=== PATIENT | male | born 1960 | race African-American/Black ===

== ENCOUNTER 2019-09-21 21:04 | Emergency (ER) | payer BC, MEDICAID ==
[~2019-09-21] VITALS: Ht 195.6 cm; Wt 90.7 kg
[2019-09-21 21:05] VITALS: BP 133/71
--- NOTE | 2019-09-21 21:05 | NUR ---
ED Nurse Note: Pt ambulated to ED from home c/o 07/23 bladder pain and urinary retention since 11am when he had his staton removed in another urgent care. Pt experienced retention 10 days ago and had a staton placed. Pt was also on keflex for 10days, c/o white discharge as well. VSS, Pt is A&Ox4
[2019-09-21] MEDS ORDERED: CEPHALEXIN500 MG ORAL (21:13)
[2019-09-21] MEDS ORDERED: Lidocaine HCl 2% Jelly 6ml Tube TOPIC ONE (21:30)
--- NOTE | 2019-09-21 21:50 | NUR ---
ED Nurse Note: Lidocaine jelly inserted per order, 14F coude cath inserted with leg bag, pt tolerated well, urine sent to lab
[2019-09-21 22:01] LABS: APPEARANCE,URINE SLIGHTLY CLOUDY; BILIRUBIN, URINE NEGATIVE (NEGATIVE); COLOR,URINE PALE YELLOW; GLUCOSE, URINE (UA) NEGATIVE (NEGATIVE); KETONES,URINE NEGATIVE (NEGATIVE); LEUKOCYTE ESTERASE ,URINE 3+ (NEGATIVE); NITRITE,URINE POSITIVE (NEGATIVE); PH,URINE 6 (4.5-8.0); PROTEIN,URINE 2+ (NEGATIVE); UROBILINOGEN,URINE NORMAL MG/DL (0.0-1.0)
[2019-09-21 22:30] VITALS: BP 133/71
--- NOTE | 2019-09-21 22:30 | NUR ---
ER DISCHARGE NOTE: Patient is cleared to be discharged per ERMD, pt is aox4, on room air, with stable vital signs. pt was given dc instructions, pt was able to verbalize understanding, pt id band removed without complications. pt is able to ambulate with steady gait. pt took all belongings. Leg bag in place
--- NOTE | 2019-09-22 00:19 | Emergency Room Report ---
History of Present Illness General Chief Complaint: Male Urogenital Problems Source: Patient Present Illness HPI 58-year-old male presents ED for evaluation. Complaining of urinary retention x1 day. States that over Thanksgi he developed urinary retention and had a Staton catheter placed at another emergency room. Was scheduled to see urologist tomorrow however patient thought he was feeling better so he went to an urgent care today and asked them to remove the catheter. Patient states he has been unable to urinate since. Denies pain. Denies fevers or chills. Denies flank pain. Was also prescribed antibiotics for presumed UTI. States he is taken nearly 10 days of antibiotics now. No other aggravating relieving factors. Denies any other associated symptoms Allergies: Coded Allergies: No Known Allergies (Verified Allergy, Unknown, 03/06/10) Patient History Past Medical History: none Past Surgical History: none Pertinent Family History: none Social History: Denies: smoking, alcohol use, drug use Immunizations: UTD Reviewed Nursing Documentation: PMH: Agreed; PSxH: Agreed Nursing Documentation-PMH Past Medical History: No History, Except For Review of Systems All Other Systems: negative except mentioned in HPI Physical Exam Vital Signs Date Time Temp Pulse Resp B/P (MAP) Pulse Ox O2 Delivery O2 Flow Rate FiO2 09/21/19 21:05 98.1 67 14 133/71 96 Room Air Sp02 EP Interpretation: reviewed, normal General Appearance: no apparent distress, alert, GCS 15, non-toxic Head: normocephalic, atraumatic Eyes: bilateral eye normal inspection, bilateral eye PERRL ENT: hearing grossly normal, normal pharynx, no angioedema, normal voice Neck: full range of motion, supple/symm/no masses Respiratory: chest non-tender, lungs clear, normal breath sounds, speaking full sentences Cardiovascular #1: regular rate, rhythm, no edema Cardiovascular #2: 2+ carotid (R), 2+ carotid (L), 2+ radial (R), 2+ radial (L) , 2+ dorsalis pedis (R), 2+ dorsalis pedis (L) Gastrointestinal: normal bowel sounds, non tender, soft, non-distended, no guarding, no rebound Rectal: deferred Genitourinary: normal inspection, no CVA tenderness Musculoskeletal: back normal, normal range of motion, gait/station normal, non- tender Neurologic: alert, motor strength/tone normal, oriented x3, sensory intact, responsive, speech normal Psychiatric: judgement/insight normal, memory normal, mood/affect normal, no suicidal/homicidal ideation Reflexes: 3+ bicep (R), 3+ bicep (L), 3+ tricep (R), 3+ tricep (L), 3+ knee (R) , 3+ knee (L) Lymphatic: no adenopathy Medical Decision Making Diagnostic Impression: Primary Impression: UTI (urinary tract infection) Qualified Codes: N39.0 - Urinary tract infection, site not specified Additional Impression: Urinary retention ER Course Hospital Course 58 yo M presents with urinary retention x 1 day after staton catheter removal Differential diagnoses include: obstruction, UTI, BPH Clinical course Patient placed on stretcher. After initial history and physical I ordered UA, staton cather with immediate relief of obstruction UA + bacteria I discussed findings with patient. Patient is currently on second round of antibiotics as prescribed by her PMD. We will continue the Keflex and await for urine culture results. States he will follow-up with his urologist as scheduled in the morning. Safe for discharge for close outpatient follow-up Diagnosis - urinary retention, UTI Stable and discharged home with staton + leg bag. continue keflex as prescribed. Instructed to followup with PMD/urologist. Return to ED if symptoms recur or worsen Labs Test 09/21/19 21:45 Urine Color Pale yellow Urine Appearance Slightly cloudy Urine pH 6 (4.5-8.0) Urine Specific [place] 1.010 (1.005-1.035) Urine Protein 2+ (NEGATIVE) Urine Glucose (UA) Negative (NEGATIVE) Urine Ketones Negative (NEGATIVE) Urine Blood 3+ (NEGATIVE) Urine Nitrite Positive (NEGATIVE) Urine Bilirubin Negative (NEGATIVE) Urine Urobilinogen Normal MG/DL (0.0-1.0) Urine Leukocyte Esterase 3+ (NEGATIVE) Urine RBC 5-10 /HPF (0 - 0) Urine WBC Tntc /HPF (0 - 0) Urine Squamous Epithelial Cells None /LPF (NONE/OCC) Urine Bacteria Moderate /HPF (NONE) Last Vital Signs Date Time Temp Pulse Resp B/P (MAP) Pulse Ox O2 Delivery O2 Flow Rate FiO2 09/21/19 22:30 98.1 67 14 133/71 96 Room Air Status: improved Disposition: HOME, SELF-CARE Condition: Improved Referrals: NOT CHOSEN [facility],REFERRING (PCP) Patient Instructions: Acute Urinary Retention, Male, [id number] Additional Instructions: take your Keflex as prescribed. followup with urology in the AM. Shilo Lake MD Sep 22, 2019 00:19
[2019-09-25] MEDS ORDERED: CIPRO500 MG PO (12:06)
== END 2019-09-21 22:30 | disposition home or self-care (01) ==
LOC: EMR 21:37
DX: R33.9 Retention of urine, unspecified (principal); N39.0 Urinary tract infection, site not specified
CPT/HCPCS: 51702; 81003; 87086; 87181; Z7502; 99284

== ENCOUNTER 2019-12-08 17:22 | Emergency (ER) | payer MEDICAID ==
[~2019-12-08] VITALS: Ht 195.6 cm; Wt 90.7 kg
[~2019-12-08 17:22] MED LIST: CEPHALEXIN500 MG ORAL; CIPRO500 MG PO
--- NOTE | 2019-12-08 17:35 | NUR ---
ED Nurse Note: patient walked into ED from home reports history of BPH, reports having indwelling staton due to unable to void. however today he reports he was at his urologist's office and was able to void on his own today. staton catheter was removed today at 1000. since then patient reports he is unable to void and having discomfort at this time. patient is alert awake x4 ambulatory, breathing unlabored and even, able to speak in full sentences.
--- NOTE | 2019-12-08 18:00 | NUR ---
ED Nurse Note: indwelling staton 16 Fr was inserted without complication as ordered by Dr. Fierro. patient reports relief as urine clear yellow urine is drained by gravity. about 700 ml output noted, notified to Dr. Fierro.
--- NOTE | 2019-12-08 18:04 | Emergency Room Report ---
History of Present Illness General Chief Complaint: Male Urogenital Problems Source: Patient Present Illness HPI Patient presents with reports that he had his Spencer catheter removed early this morning at his urologist office Soon after that since 10 AM he has not been able to urinate he has increased pressure and discomfort to the suprapubic area Denies any chest pain or shortness of breath he reports that he has essentially had a catheter in place since September Denies any focal weakness he reports that he feels that his bowel movement was also affected Also feels that he cannot walk normal given the discomfort Allergies: Coded Allergies: No Known Allergies (Verified Allergy, Unknown, 03/06/10) Patient History Past Medical History: see triage record Reviewed Nursing Documentation: PMH: Agreed; PSxH: Agreed Nursing Documentation-PMH Past Medical History: No History, Except For Review of Systems All Other Systems: negative except mentioned in HPI Physical Exam Vital Signs Date Time Temp Pulse Resp B/P (MAP) Pulse Ox O2 Delivery O2 Flow Rate FiO2 12/08/19 17:26 98.1 79 20 132/86 (101) 98 Room Air Sp02 EP Interpretation: reviewed, normal General Appearance: well appearing, other - Mild discomfort with suprapubic discomfort Head: normocephalic, atraumatic Eyes: bilateral eye PERRL, bilateral eye EOMI ENT: hearing grossly normal, normal pharynx, TMs + canals normal, uvula midline Neck: full range of motion, supple, no meningismus, no bony tend Respiratory: lungs clear, normal breath sounds, no rhonchi, no respiratory distress, no retraction, no accessory muscle use Cardiovascular #1: normal peripheral pulses, regular rate, rhythm, no edema, no gallop, no JVD, no murmur Gastrointestinal: normal bowel sounds, no mass, no organomegaly, non-distended , no guarding, no hernia, no pulsatile mass, no rebound, other - Fullness over the suprapubic area Musculoskeletal: normal inspection Neurologic: motor strength/tone normal, hotel security officer III-XII nml as tested, oriented x3 , sensory intact, responsive Psychiatric: mood/affect normal Skin: no rash Lymphatic: normal inspection, no adenopathy Medical Decision Making Diagnostic Impression: Primary Impression: Urinary retention ER Course After Spencer catheter placement patient had almost 900 cc of urine output This Spencer catheter is left in place patient is already on Flomax reports that he spoke to his urologist earlier prior to coming in and will follow closely this week Last Vital Signs Date Time Temp Pulse Resp B/P (MAP) Pulse Ox O2 Delivery O2 Flow Rate FiO2 12/08/19 17:26 98.1 79 20 132/86 (101) 98 Room Air Status: improved Disposition: HOME, SELF-CARE Condition: Improved Additional Instructions: Patient is provided with the discharge instructions notified to follow up with primary doctor in the next 2-3 days otherwise return to the er with any worsening symptoms. Please note that this report is being documented using [employer] technology. This can lead to erroneous entry secondary to incorrect interpretation by the dictating instrument. Kaleigh Fierro DO Dec 08, 2019 18:04
--- NOTE | 2019-12-08 19:11 | NUR ---
ED Nurse Note: Report given to Ying Tran RN. endorsed all plan of care to Ying Tran RN.
[2019-12-08 19:35] VITALS: BP 132/86
--- NOTE | 2019-12-08 19:38 | NUR ---
ER DISCHARGE NOTE: Patient is cleared to be discharged per ERMD, pt is aox4, on room air, with stable vital signs. pt was given dc and prescription instructions, pt was able to verbalize understanding, pt id band removed. pt is able to ambulate with steady gait. pt took all belongings. Leg bag placed, pt given one to take home. PT to follow up with urologist
== END 2019-12-08 19:35 | disposition home or self-care (01) ==
LOC: EMR 17:45
DX: R33.9 Retention of urine, unspecified (principal)
CPT/HCPCS: 51702; Z7502; 99284

== ENCOUNTER 2020-11-29 10:57 | Emergency (ER) | payer MEDICAID ==
[~2020-11-29] VITALS: Ht 195.6 cm; Wt 90.7 kg
--- NOTE | 2020-11-29 11:39 | NUR ---
Patient presented to the ER with swelling to his left leg x 5 days. Reported that he has a history of blood clots, so he called his doctor who in turn told him to go to the ER for further assessments. AAOX4. independently ambulatory. Has a history of BPH, blood clots and acromegaly.
[2020-11-29 11:46] LABS: BASOPHILS % (AUTO) 0.3 % (0.0-2.0); EOSINOPHILS % (AUTO) 1.1 % (0.0-3.0); LYMPHOCYTES % (AUTO) 15.3 % (20.0-45.0); MEAN CORPUSCULAR VOLUME 88 FL (80-99); MONOCYTES % (AUTO) 7.9 % (1.0-10.0); NEUTROPHILS % (AUTO) 75.3 % (45.0-75.0); PLATELET COUNT 412 K/UL (150-450); RED BLOOD COUNT 3.73 M/UL (4.70-6.10); RED CELL DISTRIBUTION WIDTH 12.3 % (11.6-14.8); WHITE BLOOD COUNT 14.2 K/UL (4.8-10.8)
[2020-11-29 11:56] LABS: INR 1.1 (0.9-1.1)
[2020-11-29 11:58] LABS: ANION GAP 7 mmol/L (5-15); BLOOD UREA NITROGEN 15 mg/dL (7-18); CALCIUM 9.2 MG/DL (8.5-10.1); CARBON DIOXIDE 29 MMOL/L (21-32); CHLORIDE 101 MMOL/L (98-107); POTASSIUM 3.9 MMOL/L (3.5-5.1); SODIUM 137 MMOL/L (136-145)
[2020-11-29 12:09] LABS: ALANINE AMINOTRANSFERASE 17 U/L (12-78); ALBUMIN 3.2 G/DL (3.4-5.0); ALBUMIN/GLOBULIN RATIO 0.7 (1.0-2.7); ALKALINE PHOSPHATASE 57 U/L (46-116); ASPARTATE AMINO TRANSFERASE 14 U/L (15-37); BILIRUBIN,TOTAL 0.4 MG/DL (0.2-1.0); CREATINE KINASE 126 U/L (26-308)
[2020-11-29] MEDS ORDERED: Heparin 5000 units/ml inj IV ONE (12:15)
[2020-11-29] MEDS: Heparin 25,000u/D5W 500ml 500 ML IV SCH ×3 (12:19→20:03)
--- NOTE | 2020-11-29 14:46 | Emergency Room Report ---
History of Present Illness General Chief Complaint: Edema Source: Patient (Jeferson Cowan MD) Present Illness HPI Patient presents with left leg swelling pain. Pain actually extends up into his thigh. He had similar swelling several months ago. He had a DVT on the opposi te side without pain. He was just stopped from taking Eliquis a few weeks ago. He has no pain when he is not trying to ambulate or step with the leg. Otherwise its 7 or 8/10 and aching not only in the calf but also in the medial thigh. He developed a clot several months after recovering from Covid. He had Covid last year. Patient denies any chest pain or hemoptysis. Denies any fevers or chills. No sore throat, palpitations, nausea, vomiting, diarrhea, dysuria, abdominal pain, shortness of breath, rashes, depression, anxiety, visual changes, dizziness, headache. 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, lives by himself Reviewed Nursing Documentation: PMH: Agreed; PSxH: Agreed (Jeferson Cowan MD) Nursing Documentation-PMH Past Medical History: No History, Except For (Jeferson Cowan MD) Review of Systems All Other Systems: negative except mentioned in HPI (Jeferson Cowan MD) Physical Exam Vital Signs Date Time Temp Pulse Resp B/P (MAP) Pulse Ox O2 Delivery O2 Flow Rate FiO2 11/29/20 11:05 98.4 71 17 131/79 (96) 98 Room Air Sp02 EP Interpretation: reviewed, normal General Appearance: well appearing, no apparent distress, GCS 15 Head: normocephalic Eyes: bilateral eye normal inspection, bilateral eye PERRL, bilateral eye EOMI ENT: moist mucus membranes Neck: supple Respiratory: lungs clear, normal breath sounds Cardiovascular #1: regular rate, rhythm, edema - Left greater than right lower extremity Cardiovascular #2: 2+ radial (R) Gastrointestinal: normal inspection, normal bowel sounds, non tender, no mass, non-distended Musculoskeletal: back normal, normal range of motion, calf tenderness, other - Means sign and possible cords Neurologic: alert, oriented x3, normal inspection Psychiatric: mood/affect normal Skin: no rash, warm/dry, mottled - minimally LLE (Jeferson Cowan MD) Medical Decision Making Diagnostic Impression: Primary Impression: Left leg DVT Qualified Codes: I82.412 - Acute embolism and thrombosis of left femoral vein Additional Impression: [id number] condition ER Course Patient presents with left leg swelling with history of DVT recently off of Eliquis. Differential was DVT, other edema amongst others. Patient at high risk for having a DVT and clinically this is the diagnosis at this time. If the DVT is localized to the lower leg we might be able to start Eliquis again. It is more extensive we may need to anticoagulate him more extensively. Patient evaluated with EKG, chest x-ray and labs. No evidence of pulmonary embolus at this time based on vital signs. EKG without injury. Chest x-ray slight appearance like COPD. Labs with elevated white count. Initial coags normal. Noninvasive vascular study reveals extensive clot from the common femoral down past the popliteal with occlusion. Discussion with the patient's territory manager. He recommended heparin drip as opposed to Lovenox. Heparin bolus and drip begun here. Laboratory Tests Test 11/29/20 11:35 White Blood Count 14.2 K/UL (4.8-10.8) H Red Blood Count 3.73 M/UL (4.70-6.10) L Hemoglobin 11.0 G/DL (14.2-18.0) L Hematocrit 33.0 % (42.0-52.0) L Mean Corpuscular Volume 88 FL (80-99) Mean Corpuscular Hemoglobin 29.4 PG (27.0-31.0) Mean Corpuscular Hemoglobin Concent 33.3 G/DL (32.0-36.0) Red Cell Distribution Width 12.3 % (11.6-14.8) Platelet Count 412 K/UL (150-450) Mean Platelet Volume 7.8 FL (6.5-10.1) Neutrophils (%) (Auto) 75.3 % (45.0-75.0) H Lymphocytes (%) (Auto) 15.3 % (20.0-45.0) L Monocytes (%) (Auto) 7.9 % (1.0-10.0) Eosinophils (%) (Auto) 1.1 % (0.0-3.0) Basophils (%) (Auto) 0.3 % (0.0-2.0) Prothrombin Time 12.2 SEC (9.30-11.50) H Prothrombin Time INR 1.1 (0.9-1.1) Activated Partial Thromboplast Time 32 SEC (23-33) Sodium Level 137 MMOL/L (136-145) Potassium Level 3.9 MMOL/L (3.5-5.1) Chloride Level 101 MMOL/L (98-107) Carbon Dioxide Level 29 MMOL/L (21-32) Anion Gap 7 mmol/L (5-15) Blood Urea Nitrogen 15 mg/dL (7-18) Creatinine 1.0 MG/DL (0.55-1.30) Estimated Glomerular Filtration Rate > 60 mL/min (>60) Glucose Level 106 MG/DL (74-106) Calcium Level 9.2 MG/DL (8.5-10.1) Total Bilirubin 0.4 MG/DL (0.2-1.0) Aspartate Amino Transferase (AST) 14 U/L (15-37) L Alanine Aminotransferase (ALT) 17 U/L (12-78) Alkaline Phosphatase 57 U/L (46-116) Total Creatine Kinase 126 U/L (26-308) Troponin I 0.000 ng/mL (0.000-0.056) Pro-B-Type Natriuretic Peptide 65 pg/mL (0-125) Total Protein 7.9 G/DL (6.4-8.2) Albumin 3.2 G/DL (3.4-5.0) L Globulin 4.7 g/dL Albumin/Globulin Ratio 0.7 (1.0-2.7) L Microbiology Date/Time Source Procedure Growth Status 11/29/20 17:32 Nasopharynx SARS-CoV-2 Antigen (Rapid)(MICHAEL) - Final Complete (Jeferson Cowan MD) ER Course Assumed care of the patient from the previous provider at approximately 1500. Please refer to initial note for full history and physical exam. Briefly, 60-year-old male history of DVT who was recently taken off Lovenox returns with DVT in the common femoral down to the popliteal with occlusion. Labs are within normal limits. Vital signs stable oxygen 100% without other complaints. At the time of signout we are waiting approval for admission. Patient be transferred to [facility] under the care of Dr. Jones. Stable for transfer. (Adilson Coleman MD) EKG Diagnostic Results Rate: normal Rhythm: NSR ST Segments: no acute changes (Jeferson Cowan MD) Rhythm Strip Diag. Results EP Interpretation: yes Rhythm: NSR, no PVC's, no ectopy (Jeferson Cowan MD) Chest X-Ray Diagnostic Results Chest X-Ray Diagnostic Results : Chest X-Ray Ordered: Yes # of Views/Limited/Complete: 1 View Indication: Other EP Interpretation: Yes Interpretation: no consolidation, no effusion, no pneumothorax Impression: No acute disease Electronically Signed by: Electronically signed by Jeferson Cowan MD (Jeferson Cowan MD) CT/MRI/US Diagnostic Results CT/MRI/US Diagnostic Results : Imaging Test Ordered: Noninvasive vascular study Impression Extensive DVT left leg (Jeferson Cowan MD) Last Vital Signs Date Time Temp Pulse Resp B/P (MAP) Pulse Ox O2 Delivery O2 Flow Rate FiO2 11/29/20 16:27 69 18 141/69 100 Room Air 11/29/20 14:50 98.0 Status: improved (Jeferson Cowan MD) Disposition: SHORT-TERM HOSP Condition: Stable Referrals: [facility],REFERRING (PCP) Jeferson Cowan MD Nov 29, 2020 14:46 Adilson Coleman MD Nov 29, 2020 16:19
[2020-11-29 14:50] VITALS: BP 137/73
--- NOTE | 2020-11-29 15:03 | Diagnostic Imaging Report ---
Indication: Shortness of breath Technique: One view of the chest Comparison: none Findings: Lungs and pleural spaces are clear. Heart size is normal. Previously demonstrated endotracheal tube is not evident currently Impression: No acute process
--- NOTE | 2020-11-29 15:09 | Diagnostic Imaging Report ---
Indication: Left leg pain Technique: Grayscale and duplex images of the left lower extremity veins Comparison: none Findings: On the left, grayscale and duplex images demonstrate thrombus within the common femoral vein, femoral vein and popliteal vein, resulting in absence of flow and noncompressibility. Thrombus also extends into the calf veins The common femoral vein is patent. Impression: Positive for extensive left lower extremity deep venous thrombosis
[2020-11-29 16:27] VITALS: BP 141/69
--- NOTE | 2020-11-29 18:23 | NUR ---
ED Nurse Note: Covid results faxed
[2020-11-29 19:23] VITALS: BP 124/74
--- NOTE | 2020-11-29 19:24 | NUR ---
ED Nurse Note: Received report from JERRELL Garber. Pt is resting. No new needs identified at this time. Assumed care of pt.
--- NOTE | 2020-11-29 20:30 | NUR ---
ED Nurse Note: Called reports to JERRELL Beach at [facility] room 511A [phone]. Waiting for EMS to pick pt up. No new needs identified at this time.
[2020-11-29 20:33] VITALS: BP 132/84
--- NOTE | 2020-11-29 21:05 | NUR ---
ED Nurse Note: Pt transferred to [facility] rm 511-A. D/C'd heparin per Dr. Walters. Gave report to EMS. Pt AAO x4 with stable vital signs.
[2020-11-29 21:07] VITALS: BP 130/73
== END 2020-11-29 21:09 | disposition short-term general hospital (02) ==
LOC: EMR 13:02
DX: I82.412 Acute embolism and thrombosis of left femoral vein (principal); Z86.16 Personal history of COVID-19
CPT/HCPCS: 36415; 71045; 80053; 82550; 83880; 84484; 85025; 85610; 85730; 93005; 93971; 96365; 96375; J1644; Z7502; 99285